=== PATIENT | male | born 1985 | race Caucasian/White ===

== ENCOUNTER 2016-09-10 14:23 | Outpatient (CLI) | payer OTHER ==
[~2016-09-10] VITALS: Ht 177.8 cm; Wt 103.6 kg
[~2016-09-10 14:23] MED LIST: ATOR20TA38 PO; CLOB15OI15 TOP; ESCI20TA PO; FENO200 PO; LAMO200T18 PO; LORA1TAB PO; ZIPR20CA7 PO
[2016-09-10 14:36] VITALS: BP 130/77; PULSE 95; RESP 18; Ht 177.8 cm; Wt 103.6 kg
--- NOTE | 2016-09-10 15:43 | PN ---
Date/Time of Note Date/Time of Note DATE: 09/10/16 TIME: 15:34 Assessment/Plan Assessment/Plan Assessment/Plan [facility] Progress Note Date of Service: 09/10/16 Today's Impression & Plan: Overall stable. MDTB agreed with liver biopsy. Explained in detail and answered all questions. Counselled for 15 min regarding change in lifestyle and ways to accomplish. With above assessment, I've recommended the following for today: 1. Liver right lobe lesion and normal liver biopsy 2. F/u with us post above 3. F/u with Dr. Hernandez post above 4. Lifestyle changes to combat fatty liver disease with goal of bringing BMI from 34 down to between 18-24 Thank you again for your great care of this very pleasant patient and wonderful family. If there are any questions, please feel free to call me at [phone]. TOTAL VISIT TIME: 20 minutes of which more than half was spent in [id number] discussion with the patient, possibly including family, as well as coordination of care between multiple physicians and providers. Disclaimer: Inadvertent spelling or grammatical errors are likely due to EHR/ dictation software use and do not reflect on the overall quality of patient care. Updated Clinical Summary: A very pleasant 31-year-old gentleman with comorbidities of autism, anxiety, obesity, hyperglycemia and a number of other medical issues who has known nonalcoholic fatty liver disease and a lesion that was seen on axial images that were done in the middle of 2015 that prompted a consultation with us in the liver center. MRI of the abdomen on 03/10/2016: marked steatosis and a 2.4 cm enhancing hepatic lesion on the arterial phase with differential of focal nodular hyperplasia and adenoma and low risk but possible malignancy; followup in 3 to 6 months was recommended. MRI on 02/14/[address] scan on 02/06/2016 : all show essentially similar findings. MDTB presentation 09/10/16 agreed with liver biopsy and follow up (leaning heavily toward benign process). Comorbidities: 1. Nonalcoholic fatty liver disease as shown by above-mentioned images. The patient has a history of hyperlipidemia and obesity as risk factors. His liver enzymes are fairly normal. AMA is negative. A1AT is 130. Alpha fetoprotein 1.6. CEA less than 0.5. CA 19-9 was 6. Copper level were 99. Hepatitis B surface antigen was negative and hepatitis C viral antibodies were also negative. NICKOLAS is negative. 2. Above-mentioned liver lesion approximately 2.4 cm in size located in right lobe of the liver approximately the junction of segment 5 and 6 near the portal vein branches. 3. Hepatitis B immune. 4. Hyperlipidemia. 5. Hyperglycemia. 6. Obesity. 7. Anxiety. 8. Autism. 9. Psoriasis. 10. Body tenia. 11. Varicose veins of the legs. Subjective: No major events or complaints since last visit; no abd pain; no n/v/d; no sob or cp; + flatus; + BM and normal; + activity Objective: Vitals: See below Exam: GENERAL: On exam, the patient was sitting in a chair and appeared to be comfortable and in no acute distress. ABDOMEN: Soft, nontender and nondistended. There are no peritoneal signs or guarding. SKIN: Skin appears to be pink and feels warm to touch. NEUROLOGIC: Patient is awake, alert, and follows commands appropriately. Exam/Review of Systems Vital Signs Vitals Vital Signs Date Time Temp Pulse Resp B/P Pulse Ox O2 Delivery O2 Flow Rate FiO2 09/10/16 14:36 98.0 95 18 130/77 94 Room Air ANIA LAM M.D. Sep 10, 2016 15:43 No major events or complaints; no abd pain and under control with medications; no n/v/d; no sob or cp; + flatus; + BM and normal; + activity Objective: Vitals: See below Exam: GENERAL: On exam, the patient was sitting in a chair and appeared to be comfortable and in no acute distress. ABDOMEN: Soft, nontender and nondistended. Incisions are clean, dry and intact without any evidence of erythema, edema, discharge, or hernia. Surgery drain ss. There are no peritoneal signs or guarding. SKIN: Skin appears to be pink and feels warm to touch. NEUROLOGIC: Patient is awake, alert, and follows commands appropriately. Exam/Review of Systems Vital Signs Vitals Vital Signs Date Time Temp Pulse Resp B/P Pulse Ox O2 Delivery O2 Flow Rate FiO2 09/10/16 14:36 98.0 95 18 130/77 94 Room Air ANIA LAM M.D. Sep 10, 2016 15:43
== END 2016-09-10 16:45 | disposition home or self-care (01) ==
LOC: HPC 14:23
PROVIDERS: ATTEND Transplant Surgery
DX: K76.0 Fatty (change of) liver, not elsewhere classified (principal); B19.10 Unspecified viral hepatitis B without hepatic coma; E78.5 Hyperlipidemia, unspecified; R73.9 Hyperglycemia, unspecified; F84.0 Autistic disorder; F41.9 Anxiety disorder, unspecified; I83.90 Asymptomatic varicose veins of unspecified lower extremity; L40.9 Psoriasis, unspecified; E66.9 Obesity, unspecified; Z68.32 Body mass index [BMI] 32.0-32.9, adult
CPT/HCPCS: G0463